=== PATIENT | male | born 2000 | race Caucasian/White ===

== ENCOUNTER 2021-01-19 23:45 | Emergency (ER) | payer OTHER ==
[~2021-01-19] VITALS: Ht 185.4 cm; Wt 88.0 kg
[~2021-01-19 23:45] MED LIST: IBUP600 PO; Norco 5-325 Ta1 EACH PO; RANI150 PO
[2021-01-20] MEDS ORDERED: CEPH500 PO (02:38)
[2021-01-20] MEDS ORDERED: DECADRON6 M1 PO (02:38)
== END 2021-01-20 02:47 | disposition home or self-care (01) ==
LOC: ER 23:45
DX: J02.0 Streptococcal pharyngitis (principal); F17.210 Nicotine dependence, cigarettes, uncomplicated; Z20.822 Contact with and (suspected) exposure to COVID-19
CPT/HCPCS: 36415; 87081; 87430; 96365; 96375; 99284-25; A9270; J0696; J1100; J1170; J1885; J2405; J7030

== ENCOUNTER 2021-02-25 21:39 | Inpatient (IN) | payer OTHER ==
[~2021-02-25] VITALS: Ht 185.4 cm; Wt 85.9 kg
[~2021-02-25 21:39] MED LIST changes: +CEPH500 PO; +DECADRON6 M1 PO
[2021-02-25 22:13] LABS: Source, Urine Clean Catch
[2021-02-25 22:18] LABS: BASOPHILS ABSOLUTE AUTO 0.07 K/mm3 (0.00-0.23); BASOPHILS PERCENT AUTO 1 % (0-2); EOSINOPHILS ABSOLUTE AUTO 0.05 K/mm3 (0.00-0.68); EOSINOPHILS PERCENT AUTO 1 % (0-6); Hematocrit 45.9 % (37.0-53.0); Hemoglobin 15.8 g/dL (13.5-17.5); IMMATURE GRAN ABSOLUTE AUTO 0.06 K/mm3 (0.00-0.10); IMMATURE GRAN PERCENT AUTO 1 % (0-1); LYMPHOCYTES ABSOLUTE AUTO 1.94 K/mm3 (0.84-5.20); LYMPHOCYTES PERCENT AUTO 19 % (21-46); MONOCYTES ABSOLUTE AUTO 1.21 K/mm3 (0.16-1.47); MONOCYTES PERCENT AUTO 12 % (4-13); Mean Corpuscular HGB Conc 34.4 g/dL (31.5-36.5); Mean Corpuscular Volume 93 fL (80-100); Mean Platelet Volume 8.7 fL (9.1-12.4); NEUTROPHILS ABSOLUTE AUTO 6.76 K/mm3 (1.96-9.15); NEUTROPHILS PERCENT AUTO 67 % (41-73); Platelet Count 310 K/mm3 (150-400); RDW Coefficient Variation 11.7 % (11.7-14.2); Red Blood Cell Count 4.93 M/mm3 (4.30-5.90); White Blood Cell Count 10.09 K/mm3 (4.00-11.30)
[2021-02-25 22:19] LABS: Bilirubin, Urine Neg (Neg); Blood, Urine Neg (Neg); Glucose Qualitative, Urine Neg (Neg); Ketones, Urine Neg (Neg); Leukocyte Esterase, Urine Neg (Neg); Nitrite, Urine Neg (Neg); Protein, Urine Neg (Neg); Urobilinogen, Urine NORM (Normal)
[2021-02-25 22:20] LABS: Appearance, Urine Clear (Clear); Color, Urine Yellow (P-Yellow)
[2021-02-25 22:36] LABS: Alanine Aminotransfer (ALT/SGP 27 U/L (12-78); Albumin, Blood 4.2 g/dL (3.4-5.0); Albumin/Globulin Ratio 1.1 (0.8-1.8); Alk Phos 79 U/L (50-136); Anion Gap 11 mmol/L (6-16); Aspartate Aminotrans (AST/SGOT 20 U/L (12-37); Bilirubin, Total 0.4 mg/dL (0.1-1.0); Blood Urea Nitrogen 9 mg/dL (8-24); Bun/Creatinine Ratio 12.4 (12.0-20.0); CO2, Blood 23 mmol/L (21-32); Calcium, Blood 8.8 mg/dL (8.5-10.1); Chloride, Blood 104 mmol/L (98-108); Creatinine, Blood 0.72 mg/dL (0.60-1.20); Ethanol (Alcohol), Blood, Med 178 mg/dL; Globulin, Blood 3.9 g/dL (2.2-4.0); Glomerular Filtration Rate >60 (60-); Glucose, Blood 129 mg/dL (70-99); Potassium, Blood 3.8 mmol/L (3.5-5.5); Sodium, Blood 138 mmol/L (136-145); Total Protein, Blood 8.1 g/dL (6.4-8.2)
[2021-02-25 22:45] LABS: U Amphetamine Screen Not Detected; U Barbituate Screen Not Detected; U Benzodiazapine Screen Not Detected; U Buprenorphine Screen Not Detected; U Cannabinoids Screen DETECTED; U Cocaine Screen Not Detected; U Methadone Screen Not Detected; U Methamphetamine Screen Not Detected; U Opiates Screen Not Detected; U Oxycodone Screen Not Detected; U Phencyclidine Screen Not Detected; U Propoxyphene Screen Not Detected
[2021-02-26 05:19] LABS: BASOPHILS ABSOLUTE AUTO 0.06 K/mm3 (0.00-0.23); BASOPHILS PERCENT AUTO 1 % (0-2); EOSINOPHILS ABSOLUTE AUTO 0.07 K/mm3 (0.00-0.68); EOSINOPHILS PERCENT AUTO 1 % (0-6); Hematocrit 43.4 % (37.0-53.0); Hemoglobin 14.5 g/dL (13.5-17.5); IMMATURE GRAN ABSOLUTE AUTO 0.06 K/mm3 (0.00-0.10); IMMATURE GRAN PERCENT AUTO 1 % (0-1); LYMPHOCYTES PERCENT AUTO 29 % (21-46); MONOCYTES ABSOLUTE AUTO 0.67 K/mm3 (0.16-1.47); MONOCYTES PERCENT AUTO 9 % (4-13); Mean Corpuscular HGB 31.7 pg (26.0-34.0); Mean Corpuscular HGB Conc 33.4 g/dL (31.5-36.5); Mean Corpuscular Volume 95 fL (80-100); Mean Platelet Volume 8.8 fL (9.1-12.4); NEUTROPHILS ABSOLUTE AUTO 4.19 K/mm3 (1.96-9.15); NEUTROPHILS PERCENT AUTO 59 % (41-73); Platelet Count 259 K/mm3 (150-400); RDW Coefficient Variation 11.9 % (11.7-14.2); RDW Standard Deviation 41.1 fL (35.1-46.3); Red Blood Cell Count 4.58 M/mm3 (4.30-5.90); White Blood Cell Count 7.15 K/mm3 (4.00-11.30)
[2021-02-26 05:49] LABS: Alanine Aminotransfer (ALT/SGP 23 U/L (12-78); Albumin, Blood 3.6 g/dL (3.4-5.0); Albumin/Globulin Ratio 1.1 (0.8-1.8); Alk Phos 67 U/L (50-136); Anion Gap 6 mmol/L (6-16); Aspartate Aminotrans (AST/SGOT 16 U/L (12-37); Bilirubin, Total 0.5 mg/dL (0.1-1.0); Blood Urea Nitrogen 8 mg/dL (8-24); Bun/Creatinine Ratio 10.6 (12.0-20.0); CO2, Blood 27 mmol/L (21-32); Calcium, Blood 8.7 mg/dL (8.5-10.1); Chloride, Blood 108 mmol/L (98-108); Creatinine, Blood 0.76 mg/dL (0.60-1.20); Globulin, Blood 3.2 g/dL (2.2-4.0); Glomerular Filtration Rate >60 (60-); Glucose, Blood 87 mg/dL (70-99); Sodium, Blood 141 mmol/L (136-145); Total Protein, Blood 6.8 g/dL (6.4-8.2)
--- NOTE | 2021-02-26 12:28 | NUR ---
UPDATE 1154 ENTERED THE ROOM AND SEIZURE ACTIVITY NOTED. PT PLACED ON SIDE. 2MG ATIVAN PROVIDED. SUCTION SET UP. PT CONTINUES TO SEIZE AND 2MG ATIVAN ADMINISTERED. SEIZURE LASTED [address] ZEPEDA CALLED AND NOTIFIED. 1207 PT STARTS TO SEIZE. 2MG OF ATIVAN ADMINISTERED. SEIZURE LASTED [address] ZEPEDA AT BEDSIDE. 1216 PT STARTS TO SEIZE AGAIN. DR. ZEPEDA ORDERS TO GIVE 2 MORE MG OF ATIVAN AND ADMINISTERED. THIS SEIZURE ONLY LASTED [address] ZEPEDA. IF PT CONTINUES TO HAVE SEIZURE TO GIVE 4-8 MG OF ATIVAN. WILL CONTINUE TO MONITOR CLOSELY
--- NOTE | 2021-02-26 15:04 | NUR ---
1448 SEIZURE ACTIVITY NOTED. PT MEDICATED WITH 4MG OF ATIVAN PER ORDERS AND SEIZURE STOPPED AFTER [address] ZEPEDA NOTIFIED. PT AWAKE, BUT LETHARGIC AND CONFUSED.
--- NOTE | 2021-02-26 16:47 | NUR ---
UPDATE DISCUSSED PHENOBARBITAL WITH DR. ZEPEDA. ORDERS TO HOLD AT THIS TIME DUE TO HOW MUCH ATIVAN THIS PT HAS RECEIVED. ORDERS TO GIVE PHENOBARBITAL IF PT HAS ANY SEIZURE ACTIVITY.
--- NOTE | 2021-02-26 17:31 | NUR ---
SHIFT SUMMARY PT WAS LETHARGIC AT SHIFT CHANGE AND WAS ALERT AROUND 0930. AT 0930, PT WAS A/O X3 BUT COULD NOT RECALL THE DATE AND COULD REMEBER PARTS OF THE EVENT THAT HAPPENED IN THE ER. VSS T/O SHIFT EXCEPT FOR BRIEF TACHY HR DURING SEIZURE AROUND 1200. PT HAD MULTIPLE EPISODES OF SEIZING, AT BEDSIDE, TREATED PER EMAR, SEE [facility] RN NOTES @ 1228. PT HAS EXPRESSED WANTING TO GET UP TO USE THE BATHROOM, THIS RN PERSUADED PT TO USE URINAL, PT IS STILL CONFUSED BUT COOPERATIVE. PT CIWA SCORES HAVE BEEN 13,11, AND 14 WHEN ABLE TO ASSESS PT. BED ALARM IN PLACE.
--- NOTE | 2021-02-26 18:10 | NUR ---
UPDATE 1750 THIS RN CAME INTO PT ROOM. PT WAS LAYING PARTIALLY ON LEFT SIDE WITH THE HEAD OF THE BED RAISED. THIS RN FULLY TURNED PT TO LEFT SIDE AND LOWERED THE HEAD OF THE BED WHILE CONTACING MONIE RN TO INFORM HER THAT THE PT WAS HAVING ANOTHER SEIZURE. PT HAD A SEIZURE AT 1750 FOR 2MIN, 1755 FOR 30 SEC, 1757 FOR 2 MIN, AND ANOTHER AT 1803 FOR 30 SEC. PT RECIEVED 260 MG OF PHENOBARBITAL OVER 5 MINUTES DURING THESE TIMES. ICU CHARGE NURSE NOTIFIED AND A ROOM IN ICU IS BEING PREPARED.
--- NOTE | 2021-02-26 18:33 | NUR ---
UPDATEAT AT 1823, PT BEGAN TO CLIMB OUT OF BED OVER THE SIDE RAILS. THIS RN INSTRUCTED THE PT TO REMAIN IN BED AND THAT HE HAS A URINAL THAT HE CAN USE WHILE IN THE BED. PT REFUSED TO REMAIN IN THE BED OR TO SIT AT THE EDGE OF BED TO USE URINAL. THIS RN EXPLAINED THAT HE AHS BEEN UNSTEADY AND WEAK AND THAT WE WERE TRYING TO PREVENT A FALL. PT STATED "THERE IS NO FUCKING WAY I CAN DO THIS SITTING DOWN." THE PT THEN STOOD UP ON HIS OWN. PT WAS ABLE TO KEEP BALANCE WHILE ELIMINATING INTO THE URINAL. PT BECAME UNSTEADY PT WAS PULLING UP UNDERWEAR. THIS RN GUIDED HIM TO THE EDGE OF THE BED TO SIT DOWN. PT HAS BEEN CONSISTENTLY ASKING "CAN I STEP OUT FOR A CIGARETTE?" THIS RN INFORMED THE PT THAT [facility] IS A SMOKE FREE FACILITY AND THAT I COULD CONTACT THE DOCTOR FOR A NICOTINE PATCH. PT STATED "THOSE THINGS MAKING ME FEEL LIKE SHIT."
--- NOTE | 2021-02-26 19:19 | NUR ---
TRANSFER UPDATE PT LEFT UNIT FOR MRI VIA HOSPITAL BED AT 1845. PT WILL THEN BE TRANSFERED TO ICU. REPORT WAS GIVEN TO WENCESLAO NOBLE IN ICU AT 1910.
--- NOTE | 2021-02-26 19:30 | NUR ---
ASSUME CARE NOTE: RECEIVED REPORT FROM SUBSCRIPTION CLERK. PATIENT ARRIVED FROM MRI AND MOVED TO ICU RM 13. HE IS A&O TO PERSON, PLACE, SITUATION, BUT NOT DATE/TIME. HE IS SATING 96% ON ROOM AIR. FINE TREMOR NOTED TO BUE. NO COMPLAINTS OF PAIN. REQUESTS TO LEAVE THE HOSPITAL TO SMOKE BUT CONSENTS TO A NICOTINE PATCH. HR AND BP WNL. PT IS NPO. SKIN IS WARM, DRY, AND INTACT. SUICIDE ASSESSMENT FINDS PT AT A HIGH RISK, WILL CALL HOSPITALIST FOR POSSIBLE PSYCH CONSULT/ORDERS. SEIZURE PRECAUTIONS IN PLACE. INFORMS PIPE RACKER OF SUICIDE RISK AND SHE STATES SHE WILL INFORM REMOTE MONITOR FOR OBSERVATION. SEE ASSESSMENT FOR DETAILS.
--- NOTE | 2021-02-26 20:05 | NUR ---
SEIZURE: PT APPEARS TO HAVE MILD SEIZURE. SMALL TREMOR NOTED IN BUE. PT'S EYES CLOSED WITH NO NYSTAGMUS NOTED. HR INCREASED TO 105. BP AND O2 WNL. RESOLVED AFTER 1 MINUTE.
--- NOTE | 2021-02-26 23:20 | NUR ---
UPDATE: HOSPITALIST UPDATED DR. TAPIA ON PT'S SUICIDE RISK. SHE STATES TO PLACE HIM ON MODERATE PRECAUTIONS AND CAN RE-EVAL IN THE AM FOR PSYCH CONSULT. GAVE ORDERS FOR NICOTINE PATCH. ORIGINALLY STATED TO HOLD OFF ON GIVING PHENOBARBITOL FOR CIWA BUT SPOKE WITH PHARMACY WHO PLACED MORE DETAILED PARAMETERS TO GIVE. WAS AT BEDSIDE TO EXAMINE PT BUT HE WAS SLEEPING.
--- NOTE | 2021-02-27 03:08 | NUR ---
SEIZURE: WHEN GOING TO GIVE PT AIVAN FOR CIWA OF 12, HE BEGAN HAVING MUCH MORE PRONOUCED TREMORS, STOPPED RESPONDING TO VERBAL COMMANDS, BECAME TACHYCARDIC, AND WHEN CHECKING HIS EYES, NOTICED THEY WERE ROLLED BACK WITHOUT NYSTAGMUS. GAVE 2MG ATIVAN AND AFTER 2 MINUTES, PT OPENED HIS EYES, LOOKED AROUND, SAT UP A BIT, AND THE TREMORS STOPPED. HE THEN LAID BACK AND CLOSED HIS EYES. HR RETURNED TO MID-50'S AND APPEARS TO SLEEP. RESPIRATIONS ARE EVEN AT 20 AND SATING 97% ON RA. BP WNL.
--- NOTE | 2021-02-27 04:48 | NUR ---
UPDATE: HOSPITALIST SPOKE WITH DR. GARZA IN REGARDS TO SCHEDULED LIBRIUM. HELD 0000 DOSE BECAUSE PHARMACY ONLY HAS 5MG CAPS AND THE DOSE IS 50MG AND WAS NOT CONFIDENT IN PT'S ABILITY TO SWALLOW 10 CAPS. AT THAT TIME HIS CIWA SCORE WAS ONLY 1. REQUESTED CLARIFICATION ON [address] GARZA STATES CAN GIVE PRN IF NEEDED.
--- NOTE | 2021-02-27 06:39 | NUR ---
SHIFT SUMMARY: PT LYING IN BED AND APPEARS TO BE RESTING COMFORTABLY. HE IS AROUSABLE AND A&OX 2-3. HR, BP, AND O2 WNL ON ROOM AIR. MOST RECENT CIWA SCORE WAS 0. HE HAS NO COMPLAINTS OF PAIN OR REQUESTS EXCEPT TO KNOW WHEN HE CAN GO HOME. SEIZURE AND SUICIDE PRECAUTIONS IN PLACE WITH REMOTE MONITORING. 2 SEIZURES THIS SHIFT EACH LASTING ~2 MINUTES AND PRN ATIVAN ONLY GIVEN ONCE. HE REMAINS NPO. URINAL AT BEDSIDE AND NO BM THIS SHIFT. HIS HAIR WAS SHAMPOOED FOR PLANNED EEG LATER TODAY. WILL REPORT TO ONCOMING RN WHEN AVAILABLE.
--- NOTE | 2021-02-27 08:00 | NUR ---
ASSUMED CARE: REPORT RECEIVED FROM WENCESLAO Mason RN. ASSUMED CARE OF THIS PT AT APPROX 0700. ON ASSESSMENT, THE PT IS AWAKE & ORIENTED TO ALL. HE STS HE WOULD LIKE TO GO HOME & DOESN'T UNDERSTAND WHY HE CANNOT GO OUTSIDE TO SMOKE. LS ARE CLEAR T/O, PT ON RA W/ O2 SATS > 95%. MONITOR SHOWS SB-SR W/ HR 50-60s ON AVG, INCREASED TO 90-100s W/ SEIZURE ACTIVITY PER REPORT. BT x4, PT HAS NO GI COMPLAINTS. NPO R/T SEIZURE ACTIVITY & OVERALL SOMNOLENCE. PT REFUSES TO VOID IN URINAL STATING "I WILL JUST HOLD IT THEN." THIS RN & DAV Louis, PCT, ATTEMPTED TO HELP PT STAND TO VOID W/O SUCCESS R/T UNSTEADINESS & GENERALIZED WEAKNESS. SKIN CONDITION OVERALL INTACT, PT REPOSITIONS SELF WHILE W/O DIFFICULTY. WILL CONTINUE TO MONITOR & UPDATE NEEDED.
--- NOTE | 2021-02-27 09:00 | NUR ---
SUICIDE ASSESSMENT: ON COMPLETION OF THE [place] SUICIDE SEVERITY RATING SCALE THIS AM, THE PT INFORMS THIS RN THAT HE IS HAVING SUICIDAL IDEATION "RECENTLY" & THAT HE WANTS TO BE MADE A DNR SO HE CAN "JUST ." WHEN ASKED IF HE HAS A PLAN REGARDING HOW HE WOULD COMMIT SUICIDE, HE STS "I HAVE A PISTOL THAT I WOULD TAKE OUT INTO THE PINA & I WOULD SHOOT MYSELF IN THE HEAD." WHEN THE PT WAS ASKED IF HE INTENDED TO CARRY OUT HIS SUICIDE PLAN, HE STATED "I WILL DO IT WHEN THE TIME IS RIGHT." PER SEVERITY SCALE, THE PT IS HIGH RISK, WILL DISCUSS W/ PROVIDER.
--- NOTE | 2021-02-27 09:45 | NUR ---
DR ZEPEDA: PROVIDER AT BEDSIDE TO SALLIE PT THIS AM. CURRENT SI IS DISCUSSED & PSYCHIATRY CONSULT HAS BEEN ORDERED. EEG IS CURRENTLY TAKING PLACE & THIS RN HAS CALLED CONSULT TO DR CONNELLY FOR NEUROLOGY WELL. NO OTHER CHANGES AT THIS TIME, CONTINUE MODERATE RISK SI PRECAUTIONS.
--- NOTE | 2021-02-27 10:05 | NUR ---
DR CONNELLY: CONSULTATION CALLED BY THIS RN TO PROVIDER's OFFICE. DR CONNELLY WOULD LIKE A STAT PROLACTIN TO BE DRAWN AFTER SEIZURE ACTIVITY. ORDERS ALSO PLACED FOR KEPPRA Q12, FIRST DOSE NOW. THE PROVIDER WOULD ALSO LIKE ANY FURTHER SEIZURE ACTIVITY TO BE RECORDED & SHOWN TO HIM.
--- NOTE | 2021-02-27 13:00 | NUR ---
SEIZURE ACTIVITY: THE PT HAS HAD NUMEROUS EPISODES OF SEIZURE ACTIVITY THIS AM W/ ATIVAN & PHENOBARBITAL PRN, SEE EMAR. SEIZURE ACTIVITY HAS DIFFERENT PRESENTATIONS DURING EACH EVENT. OCCASIONALLY THE PT IS MUMBLING PHRASES SUCH "LET ME " & "I WANT TO GO" WHILE HE IS TREMULOUS T/O. TREMORS SLOW & EVENTUALLY STOP AFTER ATIVAN ADMINISTRATION. DURING OTHER EVENTS, THE PT IS CONVULSING/ TREMULOUS W/ ARMS DOWN AT SIDES & EYES ARE FIXED IN UPWARD GAZE. HE IS UNRESPONSIVE TO STERNAL RUB AND/OR NAILBED PRESSURE AT THAT TIME. LABORED BREATHING NOTED DURING THIS EPISODE, PT ABLE TO MAINTAIN O2 SATS ON RA DURING THIS EVENT & SEIZURE ACTIVITY BEGINS TO SLOW/ STOP SHORTLY AFTER ATIVAN ADMINISTRATION.
--- NOTE | 2021-02-27 17:30 | NUR ---
UPDATE / PT LEAVING AMA: DURING VISITATION W/ HIS MOTHER, THE PT HAS MENTIONED THAT HE WOULD LIKE TO GO HOME. HIS MOTHER HAS BEEN ABLE TO REDIRECT HIM & REMIND HIM THAT HE IS STILL HAVING SEIZURE ACTIVITY & SHOULD STAY FOR FURTHER EVALUATION. THE PT HAS BECOME INCREASINGLY AGITATED AFTER HIS MOM LEFT, STATING "I NEED TO GO HOME NOW, I WON'T STAY ANOTHER NIGHT." HE HAS FACETIMED W/ HIS GIRLFRIEND WHO HAS ENCOURAGED HIM TO STAY IN THE HOSPITAL, BUT HE STS THAT HE IS "LEAVING ANYWAY." HE BEGINS TO PULL OFF LINES/ TUBES & IS NO LONGER REDIRECTABLE ABOUT RISK VS. BENEFITS OF LEAVING THE HOSPITAL. THIS RN SUGGESTS THAT DR ZEPEDA BE CONTACTED & COME SPEAK W/ THE PT DIRECTLY. THIS RN EXITS THE ROOM TO CONTACT THE PROVIDER AT WHICH TIME THE PT CLIMBS OOB & BEGINS TO GET DRESSED. DAV Louis, PCT, AT BEDSIDE DURING THIS TIME. HODA Pichardo, HAND UPPER AND BOTTOM LACER, ALSO TO BEDSIDE & SECURITY HAS BEEN CALLED WELL. THE PT IS INSISTENT THAT HE IS LEAVING & REFUSES TO SIGN AMA PAPERWORK. DR ZEPEDA NOTIFIES THIS RN THAT SHE WOULD LIKE TO PLACE THE PT ON AN INVOLUNTARY HOLD REGARDING PT's CONTINUED SI ON ASSESSMENT & IS HEADED TO THE PT's ROOM NOW. THE PT WILL NOT ALLOW ANY STAFF TO TOUCH HIM & QUICKLY ATTEMPTS TO LEAVE THE UNIT W/ PIVs STILL INTACT. HODA Pichardo RN, HAS BEEN ABLE TO REDIRECT THE PT & REMOVE HIS PIVs BEFORE HE LEFT THE BUILDING. DR ZEPEDA NOTIFIED & SECURITY HAS ESCORTED THE PT OUT TO HIS CAR IN THE PARKING LOT AT APPROX 1700. THE NURSING PRODUCTION MACHINE SHOP SUPERVISOR & RPD HAVE ALSO BEEN NOTIFIED OF THIS SITUATION.
== END 2021-02-27 17:00 | disposition left against medical advice (07) | DRG 894 ==
LOC: ER 21:39 → ICUW 02-26 02:18 → PCU 02-26 02:18 → ERHOLD 02-26 02:18 → PCU 02-26 04:46 → ICUW 02-26 04:58
PROVIDERS: Physician Assistant; ADMIT Internal Medicine
DX: F10.239 Alcohol dependence with withdrawal, unspecified (principal); G40.509 Epileptic seizures related to external causes, not intractable, without status epilepticus; Z88.8 Allergy status to other drugs, medicaments and biological substances; W18.30XA Fall on same level, unspecified, initial encounter; Z23 Encounter for immunization
CPT/HCPCS: 36415; 70450; 70551; 80053; 81003; 82330; 83690; 83735; 84146; 85025; 93005; 93010; 95819; 96365; 96375; 99291-25; A9270; G0480; J1650; J1953; J2060; J2405; J2560; J3411; J3475; J7030; J7042

== ENCOUNTER 2021-05-19 20:40 | Emergency (ER) | payer OTHER ==
[~2021-05-19] VITALS: Ht 185.4 cm; Wt 72.6 kg
[2021-05-19 21:12] LABS: BASOPHILS ABSOLUTE AUTO 0.12 K/mm3 (0.00-0.23); BASOPHILS PERCENT AUTO 1 % (0-2); EOSINOPHILS ABSOLUTE AUTO 0.08 K/mm3 (0.00-0.68); EOSINOPHILS PERCENT AUTO 1 % (0-6); Hematocrit 44.3 % (37.0-53.0); Hemoglobin 15.1 g/dL (13.5-17.5); IMMATURE GRAN ABSOLUTE AUTO 0.04 K/mm3 (0.00-0.10); IMMATURE GRAN PERCENT AUTO 0 % (0-1); LYMPHOCYTES ABSOLUTE AUTO 3.15 K/mm3 (0.84-5.20); LYMPHOCYTES PERCENT AUTO 32 % (21-46); MONOCYTES ABSOLUTE AUTO 1.25 K/mm3 (0.16-1.47); MONOCYTES PERCENT AUTO 13 % (4-13); Mean Corpuscular HGB 31.8 pg (26.0-34.0); Mean Corpuscular HGB Conc 34.1 g/dL (31.5-36.5); Mean Corpuscular Volume 93 fL (80-100); Mean Platelet Volume 9.2 fL (9.1-12.4); NEUTROPHILS ABSOLUTE AUTO 5.25 K/mm3 (1.96-9.15); NEUTROPHILS PERCENT AUTO 53 % (41-73); Platelet Count 316 K/mm3 (150-400); RDW Coefficient Variation 11.3 % (11.7-14.2); RDW Standard Deviation 39.2 fL (35.1-46.3); Red Blood Cell Count 4.75 M/mm3 (4.30-5.90); White Blood Cell Count 9.89 K/mm3 (4.00-11.30)
[2021-05-19 21:33] LABS: Alanine Aminotransfer (ALT/SGP 37 U/L (12-78); Albumin, Blood 4.4 g/dL (3.4-5.0); Albumin/Globulin Ratio 1.3 (0.8-1.8); Alk Phos 71 U/L (50-136); Anion Gap 9 mmol/L (6-16); Aspartate Aminotrans (AST/SGOT 22 U/L (12-37); Bilirubin, Total 0.3 mg/dL (0.1-1.0); Blood Urea Nitrogen 12 mg/dL (8-24); Bun/Creatinine Ratio 15.3 (12.0-20.0); CO2, Blood 25 mmol/L (21-32); Calcium, Blood 9.2 mg/dL (8.5-10.1); Chloride, Blood 107 mmol/L (98-108); Creatinine, Blood 0.78 mg/dL (0.60-1.20); Globulin, Blood 3.5 g/dL (2.2-4.0); Glomerular Filtration Rate >60 (60-); Glucose, Blood 78 mg/dL (70-99); Magnesium, Blood 2.5 mg/dL (1.6-2.4); Sodium, Blood 141 mmol/L (136-145); Total Protein, Blood 7.9 g/dL (6.4-8.2)
[2021-05-19 22:17] LABS: Ethanol (Alcohol), Blood, Med 163 mg/dL
== END 2021-05-19 22:22 | disposition home or self-care (01) ==
LOC: ER 20:40
PROVIDERS: Emergency Medicine
DX: F10.129 Alcohol abuse with intoxication, unspecified (principal); F17.210 Nicotine dependence, cigarettes, uncomplicated; Z88.1 Allergy status to other antibiotic agents; Y90.6 Blood alcohol level of 120-199 mg/100 ml
CPT/HCPCS: 80053; 83735; 85025; G0480

== ENCOUNTER → 2021-08-26 | Outpatient (CLI) | payer OTHER ==
[2021-08-26 12:49] LABS: BASOPHILS ABSOLUTE AUTO 0.05 K/mm3 (0.00-0.23); BASOPHILS PERCENT AUTO 1 % (0-2); EOSINOPHILS ABSOLUTE AUTO 0.08 K/mm3 (0.00-0.68); EOSINOPHILS PERCENT AUTO 1 % (0-6); Hematocrit 42.3 % (37.0-53.0); Hemoglobin 14.3 g/dL (13.5-17.5); IMMATURE GRAN ABSOLUTE AUTO 0.02 K/mm3 (0.00-0.10); IMMATURE GRAN PERCENT AUTO 0 % (0-1); LYMPHOCYTES ABSOLUTE AUTO 1.14 K/mm3 (0.84-5.20); LYMPHOCYTES PERCENT AUTO 18 % (21-46); MONOCYTES ABSOLUTE AUTO 0.59 K/mm3 (0.16-1.47); MONOCYTES PERCENT AUTO 10 % (4-13); Mean Corpuscular HGB 31.6 pg (26.0-34.0); Mean Corpuscular HGB Conc 33.8 g/dL (31.5-36.5); Mean Corpuscular Volume 94 fL (80-100); Mean Platelet Volume 8.9 fL (9.1-12.4); NEUTROPHILS ABSOLUTE AUTO 4.33 K/mm3 (1.96-9.15); NEUTROPHILS PERCENT AUTO 70 % (41-73); Platelet Count 261 K/mm3 (150-400); RDW Coefficient Variation 11.8 % (11.7-14.2); RDW Standard Deviation 40.4 fL (35.1-46.3); Red Blood Cell Count 4.52 M/mm3 (4.30-5.90); White Blood Cell Count 6.21 K/mm3 (4.00-11.30)
[2021-08-26 12:57] LABS: Alanine Aminotransfer (ALT/SGP 25 U/L (12-78); Albumin/Globulin Ratio 1.1 (0.8-1.8); Alk Phos 72 U/L (40-126); Anion Gap 7 mmol/L (6-16); Aspartate Aminotrans (AST/SGOT 10 U/L (12-37); Bilirubin, Total 0.4 mg/dL (0.1-1.0); Blood Urea Nitrogen 10 mg/dL (8-24); Bun/Creatinine Ratio 11.5 (12.0-20.0); CO2, Blood 30 mmol/L (21-32); Calcium, Blood 8.8 mg/dL (8.5-10.1); Chloride, Blood 105 mmol/L (98-108); Creatinine, Blood 0.87 mg/dL (0.60-1.20); Globulin, Blood 3.5 g/dL (2.2-4.0); Glomerular Filtration Rate >60 (60-); Glucose, Blood 82 mg/dL (70-99); Potassium, Blood 3.8 mmol/L (3.5-5.5); Sodium, Blood 142 mmol/L (136-145); Total Protein, Blood 7.5 g/dL (6.4-8.2)
== END ==
LOC: LAB SHORT 12:44
PROVIDERS: Physician Assistant Surgical
DX: R10.9 Unspecified abdominal pain (principal)
CPT/HCPCS: 80053; 85025

== ENCOUNTER 2021-09-26 18:07 | Emergency (ER) | payer OTHER ==
[~2021-09-26] VITALS: Ht 182.9 cm; Wt 81.7 kg
[2021-09-26 18:32] LABS: BASOPHILS ABSOLUTE AUTO 0.07 K/mm3 (0.00-0.23); BASOPHILS PERCENT AUTO 1 % (0-2); EOSINOPHILS ABSOLUTE AUTO 0.13 K/mm3 (0.00-0.68); EOSINOPHILS PERCENT AUTO 2 % (0-6); Hematocrit 42.4 % (37.0-53.0); Hemoglobin 14.5 g/dL (13.5-17.5); IMMATURE GRAN ABSOLUTE AUTO 0.04 K/mm3 (0.00-0.10); IMMATURE GRAN PERCENT AUTO 1 % (0-1); LYMPHOCYTES PERCENT AUTO 25 % (21-46); MONOCYTES ABSOLUTE AUTO 0.61 K/mm3 (0.16-1.47); MONOCYTES PERCENT AUTO 8 % (4-13); Mean Corpuscular HGB 31.4 pg (26.0-34.0); Mean Corpuscular HGB Conc 34.2 g/dL (31.5-36.5); Mean Corpuscular Volume 92 fL (80-100); Mean Platelet Volume 8.9 fL (9.1-12.4); NEUTROPHILS ABSOLUTE AUTO 4.72 K/mm3 (1.96-9.15); NEUTROPHILS PERCENT AUTO 63 % (41-73); Platelet Count 282 K/mm3 (150-400); RDW Coefficient Variation 11.7 % (11.7-14.2); RDW Standard Deviation 39.6 fL (35.1-46.3); Red Blood Cell Count 4.62 M/mm3 (4.30-5.90); White Blood Cell Count 7.47 K/mm3 (4.00-11.30)
[2021-09-26 18:46] LABS: Albumin, Blood 4.1 g/dL (3.4-5.0); Albumin/Globulin Ratio 1.2 (0.8-1.8); Bilirubin, Total 0.3 mg/dL (0.1-1.0); Bun/Creatinine Ratio 14.1 (12.0-20.0); Calcium, Blood 8.6 mg/dL (8.5-10.1); Creatinine, Blood 0.64 mg/dL (0.60-1.20); Globulin, Blood 3.4 g/dL (2.2-4.0); Potassium, Blood 3.7 mmol/L (3.5-5.5); Total Protein, Blood 7.5 g/dL (6.4-8.2)
== END 2021-09-26 19:17 | disposition home or self-care (01) ==
LOC: ER 18:07
PROVIDERS: Emergency Medicine
DX: S50.812A Abrasion of left forearm, initial encounter (principal); F17.210 Nicotine dependence, cigarettes, uncomplicated; V89.2XXA Person injured in unspecified motor-vehicle accident, traffic, initial encounter
CPT/HCPCS: 71045; 80053; 85025; 93005; 93010; 99284-25; G0480

== ENCOUNTER 2021-12-31 14:13 | Emergency (ER) | payer OTHER ==
[~2021-12-31] VITALS: Ht 185.4 cm; Wt 93.0 kg
[2021-12-31] MEDS ORDERED: Norco 5-325 Ta1 EACH PO (16:03)
[2021-12-31] MEDS ORDERED: IBU600 M1 PO (16:03)
== END 2021-12-31 16:15 | disposition home or self-care (01) ==
LOC: ER 14:13
DX: S83.91XA Sprain of unspecified site of right knee, initial encounter (principal); F17.210 Nicotine dependence, cigarettes, uncomplicated; X58.XXXA Exposure to other specified factors, initial encounter; Y99.0 Civilian activity done for income or pay; Z88.5 Allergy status to narcotic agent; Z91.02 Food additives allergy status
CPT/HCPCS: 73562-RT